=== PATIENT | female | born 1950 | race Two or more races ===

== ENCOUNTER 2016-10-18 01:50 | Emergency (ER) | payer MEDICARE, OTHER ==
[~2016-10-18] VITALS: Ht 165.1 cm; Wt 68.0 kg
--- NOTE | ~2016-10-18 | EKG ---
PATIENT: BELEN JIMENEZ UNIT #: [id number] Ventricular Rate: 92 BPM Atrial Rate: 92 BPM P-R Interval: 150 ms QRS Duration: 82 ms Q-T Interval: 362 ms QTC Calculation(Bezet): 447 ms P [place]: 67 degrees Calculated R [place]: 40 degrees Calculated T [place]: 56 degrees Diagnosis Line: Normal sinus rhythm Diagnosis Line: Normal ECG Diagnosis Line: When compared with ECG of 24-MAY-2015 18:28, Diagnosis Line: No significant change was found Diagnosis Line: Confirmed by TAD ROSS MD ([id number]) on 10/19/2016 Diagnosis Line: 10:16:39 PM INTERPRETING MD: VANDANA GALLEGO
--- NOTE | ~2016-10-18 | CR72 ---
[facility] A Service of [facility] RADIOLOGY TEXT RESULTS PATIENT: BELEN JIMENEZ LOCATION: [facility] : 48 UNIT #: [id number] AGE: [address]: Bobby Pratt MD SEX: F ORDER DR: [id number] [facility] [address] [place], [place] [address] [id number] E MR#: [id number] Acc #: [id number] NAME: BELEN JIMENEZ : 1950 SEX: F STUDY DATE/TIME: 10/18/2016 3:29 UNIT: [facility] ROOM: STUDY DESCRIPTION: CR Chest Single View Portable Attending Physician: Bobby Pratt M.D. Ordering Physician: Bobby Pratt M.D. Primary Care Physician: Og Mitchell M.D. MEDICAL IMAGING REPORT This report is preliminary unless electronic signature is present EXAM Chest x-ray 10/18/2016 HISTORY 66-year-old female in the ED complaining of 2-day history of left side chest pain, shortness of air. TECHNIQUE AP portable chest x-ray. FINDINGS The exam shows no active disease in the chest. Mild cardiomegaly. Pulmonary vascularity is normal. The lungs appear clear. No visible pulmonary infiltrate or pleural effusion. No change since 05/24/2015. IMPRESSION No active disease. No change since 05/24/2015. Dictated by... Angelo Wiggins M.D. THIS IS AN ELECTRONICALLY VERIFIED REPORT Angelo Wiggins M.D. at 10/18/2016 9:46 PM ZEVW/sheba TD: 10/18/2016 09:09 JOB #: [id number] MEDICAL IMAGING REPORT Page 1 of 1 COPY
[~2016-10-18 01:50] MED LIST: ALBUTEROL17 GM INH; AZOR 10-20 MG1 UDTAB PO; KLONOPIN0.5 MG PO; PHENERGAN25 MG PO; PREDNISONE10 MG/DOSE PO; PRILOSEC40 MG PO; QVAR7.3 G1 INH; VIBRAMYCIN100 M1 DOB; [UNRECOGNIZED DRUG - OTHER]
[2016-10-18 03:34] LABS: BASOPHIL% 0.3 % (0-2.5); EOSINOPHIL# 0.1 X10e3 (0-0.7); EOSINOPHIL% 0.8 % (0.0-7.0); HEMATOCRIT 34.1 % (35.0-45.0); HEMOGLOBIN 11.1 gm/dL (12.0-16.0); LYMPHOCYTE# 2.3 X10e3 (1.0-3.5); LYMPHOCYTE% 20.6 % (17.0-45.0); MEAN CELL VOLUME 81.3 FL (83-96); MEAN CORPUSCULAR HEMOGLOBIN 26.4 PG (28-34); MEAN CORPUSCULAR HGB CONC 32.5 g/dL (30-36); MEAN PLATELET VOLUME 8.2 FL (6.5-11.5); MONOCYTE# 0.8 X10e3 (0-1.0); MONOCYTE% 6.7 % (3.0-12.0); NEUTROPHIL# 8.1 X10e3 (1.5-7.1); NEUTROPHIL% 71.6 % (40-75); PLATELET COUNT 237 X10e3 (140-420); RED BLOOD COUNT 4.19 X10e (3.90-5.30); RED CELL DISTRIBUTION WIDTH 13.1 % (11.0-15.5); WHITE BLOOD COUNT 11.3 X10e3 (4.0-10.5)
[2016-10-18 03:35] LABS: DIFF IND NO
[2016-10-18 03:38] LABS: POC - TROPONIN <0.05 ng/mL (<=0.05)
[2016-10-18 03:53] LABS: ALBUMIN SERUM 4.1 g/dL (3.5-5.0); BILIRUBIN, DIRECT 0.1 mg/dL (0.0-0.2); BILIRUBIN,INDIRECT 0.7 mg/dL (0.0-0.9); BILIRUBIN,TOTAL 0.8 mg/dL (0.2-2.0); BUN/CREATININE RATIO 21.42; CREATININE SERUM 0.7 mg/dL (0.6-1.4); GLOM FILT RATE Estimated 89.7 mL/min (>60); POTASSIUM 3.9 mmol/L (3.5-5.1); PROTEIN TOTAL SERUM 7.1 g/dL (6.0-8.3)
== END 2016-10-18 04:20 | disposition home or self-care (01) ==
LOC: CED 01:50
PROVIDERS: Emergency Medicine
DX: R07.89 Other chest pain (principal); I10 Essential (primary) hypertension; E11.9 Type 2 diabetes mellitus without complications
CPT/HCPCS: 36415; 71010; 80048; 80076; 82553; 83880; 84484; 85025; 93005; 99285